=== PATIENT | male | born 1985 | race African-American/Black ===

== ENCOUNTER → 2016-05-07 | Emergency (ER) | payer BC ==
[~2016-05-07] VITALS: Ht 182.9 cm; Wt 113.6 kg
[~2016-05-07] MED LIST: AMOXICILLIN 8751 TAB PO; CARAFATE 1GM1 G PO; CEPHALEXIN500 M1 PO; LEVAQUIN 750MG750 M1 PO; NO HOME MEDICATIONS; NORCO 325 MG-51 TAB PO; PERCOCET 325 MG1 TA2; PERCOCET 325 MG1 TA2 PO; PHENERGAN 25 TA25 MG PO; TYLENOL ARTHRI650 M1 PO; ZOFRAN 4MG T4 MG/TAB PO; ZOFRAN ODT4 MG PO; ZOFRAN8 MG PO; ZYLOPRIM 300MG300 MG PO
[2016-05-07 08:21] VITALS: TEMP 98
[2016-05-07 08:57] LABS: BASO % 0.5 % (0.0-2.0); EOS # 0.1 (0.0-0.7); EOS % 1.1 % (0-4.0); GRAN # 3.8 (1.4-6.5); GRAN % 58.3 % (42.2-75.2); HEMATOCRIT 39.5 % (42.0-52.0); LYMPH # 2.1 (1.2-3.4); LYMPH % 32.5 % (20.0-51.0); MEAN CELL VOLUME 67 fl (80.0-100.0); MEAN CORPUSCULAR HEMOGLOBIN 24 pg (27.0-31.0); MEAN CORPUSCULAR HGB CONC 35 g/dl (33.0-37.0); MONO # 0.5 (0.1-0.6); MONO % 7.1 % (1.7-9.3); PLATELET COUNT 124 K/mm3 (130-400); RED BLOOD COUNT 5.88 M/mm3 (4.20-5.60); REDCELL DISTRIBUTION WIDTH-CV 18.8 % (11.5-14.5); WHITE BLOOD COUNT 6.5 K/mm3 (4.8-10.8)
[2016-05-07 09:22] LABS: ADJUSTED CALCIUM 9.3 mg/dL (8.4-10.2); ALBUMIN 4.8 gm/dL (3.5-5.0); BILIRUBIN,TOTAL 1.6 mg/dL (0.0-1.0); C-REACTIVE PROTEIN 0.7 mg/dL (0.0-0.9); CALCIUM 9.9 mg/dL (8.4-10.2); CREATININE, serum 0.83 mg/dL (0.66-1.25); POTASSIUM 4.5 mmol/L (3.4-5.0); TOTAL PROTEIN 8.8 gm/dL (6.4-8.2)
[2016-05-07 09:52] LABS: INFLUENZA B NEGATIVE
[2016-05-07 10:07] VITALS: BP 136/72; PULSE 72
== END | disposition home or self-care (01) ==
LOC: COL.ER 08:20
PROVIDERS: Emergency Medicine
DX: B34.9 Viral infection, unspecified (principal); R53.1 Weakness; R11.2 Nausea with vomiting, unspecified; R19.7 Diarrhea, unspecified

== ENCOUNTER → 2016-06-01 | Outpatient (CLI) | payer BC ==
[2016-06-01 12:01] LABS: ADJUSTED CALCIUM 9.2 mg/dL (8.4-10.2); BILIRUBIN,TOTAL 1.3 mg/dL (0.0-1.0); CREATININE, serum 0.89 mg/dL (0.66-1.25); POTASSIUM 4.1 mmol/L (3.4-5.0); TOTAL PROTEIN 9.2 gm/dL (6.4-8.2); URIC ACID 9.5 mg/dL (3.5-8.5)
[2016-06-01 12:03] LABS: BASO % 0.5 % (0.0-2.0); EOS # 0.1 (0.0-0.7); EOS % 0.7 % (0-4.0); GRAN # 5.1 (1.4-6.5); GRAN % 62.7 % (42.2-75.2); HEMOGLOBIN 13.9 g/dl (13.5-18.0); LYMPH # 2.4 (1.2-3.4); LYMPH % 29.4 % (20.0-51.0); MEAN CELL VOLUME 67 fl (80.0-100.0); MEAN CORPUSCULAR HEMOGLOBIN 24 pg (27.0-31.0); MEAN CORPUSCULAR HGB CONC 36 g/dl (33.0-37.0); MONO # 0.5 (0.1-0.6); MONO % 6.3 % (1.7-9.3); PLATELET COUNT 112 K/mm3 (130-400); RED BLOOD COUNT 5.86 M/mm3 (4.20-5.60); REDCELL DISTRIBUTION WIDTH-CV 18.7 % (11.5-14.5); WHITE BLOOD COUNT 8.2 K/mm3 (4.8-10.8)
== END ==
LOC: COL.LAB 10:16
PROVIDERS: Physician Assistant
DX: D57.1 Sickle-cell disease without crisis (principal); M10.9 Gout, unspecified

== ENCOUNTER 2016-08-16 09:53 | Emergency (ER) | payer BC ==
[~2016-08-16] VITALS: Ht 182.9 cm; Wt 125.0 kg
[~2016-08-16 09:53] MED LIST changes: -CARAFATE 1GM1 G PO; -ZYLOPRIM 300MG300 MG PO
[2016-08-16 10:04] VITALS: BP 136/86; TEMP 98.6
[2016-08-16] MEDS ORDERED: ZYLOPRIM 300MG300 MG PO (10:07)
[2016-08-16 11:09] LABS: BASO % 0.3 % (0.0-2.0); EOS # 0.1 (0.0-0.7); EOS % 0.7 % (0-4.0); GRAN # 4.3 (1.4-6.5); GRAN % 62.7 % (42.2-75.2); HEMATOCRIT 37.8 % (42.0-52.0); HEMOGLOBIN 13.5 g/dl (13.5-18.0); LYMPH % 29.3 % (20.0-51.0); MEAN CELL VOLUME 66 fl (80.0-100.0); MEAN CORPUSCULAR HEMOGLOBIN 24 pg (27.0-31.0); MEAN CORPUSCULAR HGB CONC 36 g/dl (33.0-37.0); MONO # 0.4 (0.1-0.6); MONO % 6.4 % (1.7-9.3); PLATELET COUNT 109 K/mm3 (130-400); REDCELL DISTRIBUTION WIDTH-CV 18.8 % (11.5-14.5); WHITE BLOOD COUNT 6.9 K/mm3 (4.8-10.8)
[2016-08-16 11:26] LABS: ADJUSTED CALCIUM 9.2 mg/dL (8.4-10.2); ALBUMIN 4.7 gm/dL (3.5-5.0); BILIRUBIN,TOTAL 1.4 mg/dL (0.0-1.0); CALCIUM 9.8 mg/dL (8.4-10.2); CREATININE, serum 0.79 mg/dL (0.66-1.25); TOTAL PROTEIN 8.2 gm/dL (6.4-8.2)
[2016-08-16] MEDS ORDERED: CARAFATE 1GM1 G PO (12:54)
[2016-08-16] MEDS ORDERED: ZOFRAN ODT4 MG PO (12:54)
[2016-08-16 13:00] VITALS: PULSE 81
== END 2016-08-16 14:13 | disposition home or self-care (01) ==
LOC: COL.ER 09:53
PROVIDERS: Emergency Medicine
DX: K29.70 Gastritis, unspecified, without bleeding (principal); R11.10 Vomiting, unspecified; D57.1 Sickle-cell disease without crisis; M10.9 Gout, unspecified

== ENCOUNTER 2016-08-23 08:41 | Emergency (ER) | payer BC ==
[~2016-08-23] VITALS: Ht 185.4 cm; Wt 125.0 kg
[~2016-08-23 08:41] MED LIST changes: +CARAFATE 1GM1 G PO; +ZYLOPRIM 300MG300 MG PO
[2016-08-23 08:43] VITALS: TEMP 98.1
[2016-08-23 09:34] LABS: BASO % 0.5 % (0.0-2.0); EOS % 0.7 % (0-4.0); GRAN # 3.9 (1.4-6.5); GRAN % 63.6 % (42.2-75.2); HEMATOCRIT 39.3 % (42.0-52.0); HEMOGLOBIN 13.8 g/dl (13.5-18.0); LYMPH # 1.7 (1.2-3.4); LYMPH % 27.8 % (20.0-51.0); MEAN CORPUSCULAR HEMOGLOBIN 24 pg (27.0-31.0); MEAN CORPUSCULAR HGB CONC 35 g/dl (33.0-37.0); MONO # 0.4 (0.1-0.6); MONO % 7.2 % (1.7-9.3); PLATELET COUNT 109 K/mm3 (130-400); RED BLOOD COUNT 5.85 M/mm3 (4.20-5.60); REDCELL DISTRIBUTION WIDTH-CV 18.7 % (11.5-14.5); WHITE BLOOD COUNT 6.1 K/mm3 (4.8-10.8)
[2016-08-23 09:39] LABS: MEAN CELL VOLUME 67 fl (80.0-100.0)
[2016-08-23 09:43] LABS: ADJUSTED CALCIUM 9.2 mg/dL (8.4-10.2); ALBUMIN 4.7 gm/dL (3.5-5.0); BILIRUBIN,TOTAL 1.5 mg/dL (0.0-1.0); CALCIUM 9.8 mg/dL (8.4-10.2); CREATININE, serum 0.87 mg/dL (0.66-1.25); POTASSIUM 3.9 mmol/L (3.4-5.0); TOTAL PROTEIN 8.4 gm/dL (6.4-8.2)
[2016-08-23 17:03] VITALS: BP 119/74; PULSE 88
== END 2016-08-23 10:54 | disposition home or self-care (01) ==
LOC: COL.ER 08:41
PROVIDERS: Family Medicine
DX: K29.70 Gastritis, unspecified, without bleeding (principal); D57.1 Sickle-cell disease without crisis
CPT/HCPCS: J2250; J2405; J3010; J7030

== ENCOUNTER 2016-08-23 14:21 | Day surgery (SDC) | payer BC ==
[~2016-08-23] VITALS: Ht 182.9 cm; Wt 123.9 kg
[2016-08-23 14:34] VITALS: BP 131/66; PULSE 77; TEMP 98.4
[2016-08-23 14:58] VITALS: BP 131/66; PULSE 77; TEMP 98.4
[2016-08-23 16:20] VITALS: BP 121/63; PULSE 71
[2016-08-23 16:35] VITALS: BP 110/60; PULSE 72
[2016-08-23 16:50] VITALS: BP 116/63; PULSE 68
[2016-08-23 17:05] VITALS: BP 117/66; PULSE 67
== END 2016-08-23 17:40 | disposition home or self-care (01) ==
LOC: SDCO 14:21 → JCC 14:21 → SDCO 17:40
DX: K21.0 Gastro-esophageal reflux disease with esophagitis (principal); R11.2 Nausea with vomiting, unspecified; K44.9 Diaphragmatic hernia without obstruction or gangrene; D57.3 Sickle-cell trait
CPT/HCPCS: OP; J7030

== ENCOUNTER 2016-10-01 10:38 | Emergency (ER) | payer BC ==
[~2016-10-01] VITALS: Ht 182.9 cm; Wt 122.7 kg
[2016-10-01 10:47] VITALS: BP 133/74; PULSE 66; TEMP 98.3
[2016-10-01 12:10] LABS: BASO % 0.5 % (0.0-2.0); EOS % 0.2 % (0-4.0); GRAN # 3.6 (1.4-6.5); GRAN % 60.5 % (42.2-75.2); HEMATOCRIT 38.3 % (42.0-52.0); HEMOGLOBIN 13.5 g/dl (13.5-18.0); LYMPH # 1.9 (1.2-3.4); LYMPH % 32.5 % (20.0-51.0); MEAN CELL VOLUME 67 fl (80.0-100.0); MEAN CORPUSCULAR HEMOGLOBIN 24 pg (27.0-31.0); MEAN CORPUSCULAR HGB CONC 35 g/dl (33.0-37.0); MONO # 0.4 (0.1-0.6); MONO % 6.1 % (1.7-9.3); PLATELET COUNT 111 K/mm3 (130-400); RED BLOOD COUNT 5.71 M/mm3 (4.20-5.60); REDCELL DISTRIBUTION WIDTH-CV 18.8 % (11.5-14.5); WHITE BLOOD COUNT 5.9 K/mm3 (4.8-10.8)
[2016-10-01 12:54] LABS: ADJUSTED CALCIUM 8.8 mg/dL (8.4-10.2); ALBUMIN 4.6 gm/dL (3.5-5.0); BILIRUBIN,TOTAL 1.4 mg/dL (0.0-1.0); C-REACTIVE PROTEIN 0.6 mg/dL (0.0-0.9); CALCIUM 9.3 mg/dL (8.4-10.2); CREATININE, serum 0.91 mg/dL (0.66-1.25); POTASSIUM 4.1 mmol/L (3.4-5.0)
== END 2016-10-01 15:09 | disposition home or self-care (01) ==
LOC: COL.ER 10:38
PROVIDERS: Physician Assistant
DX: R10.11 Right upper quadrant pain (principal); R11.2 Nausea with vomiting, unspecified; D57.1 Sickle-cell disease without crisis
CPT/HCPCS: J1170; J2550; J7030; Q9967

== ENCOUNTER → 2016-10-04 | Outpatient (CLI) | payer BC | LOC: COL.RAD 09:41 | DX: K82.8 Other specified diseases of gallbladder (principal) ==

== ENCOUNTER 2016-12-21 08:34 | Emergency (ER) | payer BC ==
[~2016-12-21] VITALS: Ht 182.9 cm; Wt 124.1 kg
[2016-12-21 08:35] VITALS: BP 133/82; PULSE 89; TEMP 98.8
[2016-12-21 09:23] LABS: BASO % 0.5 % (0.0-2.0); EOS # 0.1 (0.0-0.7); EOS % 0.8 % (0-4.0); GRAN # 5.6 (1.4-6.5); GRAN % 68.1 % (42.2-75.2); HEMATOCRIT 38.3 % (42.0-52.0); HEMOGLOBIN 13.9 g/dl (13.5-18.0); LYMPH # 1.8 (1.2-3.4); LYMPH % 22.2 % (20.0-51.0); MEAN CELL VOLUME 67 fl (80.0-100.0); MEAN CORPUSCULAR HEMOGLOBIN 24 pg (27.0-31.0); MEAN CORPUSCULAR HGB CONC 36 g/dl (33.0-37.0); MONO # 0.7 (0.1-0.6); MONO % 8.2 % (1.7-9.3); PLATELET COUNT 124 K/mm3 (130-400); REDCELL DISTRIBUTION WIDTH-CV 18.1 % (11.5-14.5); RETIC % 2.6 % (0.5-3.52); WHITE BLOOD COUNT 8.3 K/mm3 (4.8-10.8)
[2016-12-21 09:33] LABS: CALCIUM 9.4 mg/dL (8.4-10.2); CREATININE, serum 0.83 mg/dL (0.66-1.25); POTASSIUM 3.9 mmol/L (3.4-5.0)
[2016-12-21] MEDS ORDERED: NORCO 325 MG-51 TAB PO (10:11)
== END 2016-12-21 11:20 | disposition home or self-care (01) ==
LOC: COL.ER 08:34
PROVIDERS: Physician Assistant
DX: D69.6 Thrombocytopenia, unspecified (principal); M25.561 Pain in right knee; D57.1 Sickle-cell disease without crisis
CPT/HCPCS: J1170; J1885; J7030

== ENCOUNTER 2017-02-02 08:37 | Emergency (ER) | payer BC ==
[~2017-02-02] VITALS: Ht 182.9 cm; Wt 125.0 kg
[2017-02-02 08:41] VITALS: BP 141/80; TEMP 98
[2017-02-02 09:39] LABS: ADJUSTED CALCIUM 9.1 mg/dL (8.4-10.2); ALBUMIN 4.3 gm/dL (3.5-5.0); BILIRUBIN,TOTAL 1.4 mg/dL (0.0-1.0); CALCIUM 9.3 mg/dL (8.4-10.2); CREATININE, serum 0.85 mg/dL (0.66-1.25); TOTAL PROTEIN 7.6 gm/dL (6.4-8.2)
[2017-02-02 09:46] LABS: BASO % 0.4 % (0.0-2.0); EOS # 0.1 (0.0-0.7); EOS % 0.7 % (0-4.0); GRAN # 5.2 (1.4-6.5); GRAN % 74.3 % (42.2-75.2); HEMATOCRIT 37.4 % (42.0-52.0); HEMOGLOBIN 13.2 g/dl (13.5-18.0); LYMPH # 1.3 (1.2-3.4); LYMPH % 18.9 % (20.0-51.0); MEAN CELL VOLUME 68 fl (80.0-100.0); MEAN CORPUSCULAR HEMOGLOBIN 24 pg (27.0-31.0); MEAN CORPUSCULAR HGB CONC 35 g/dl (33.0-37.0); MONO # 0.4 (0.1-0.6); MONO % 5.3 % (1.7-9.3); PLATELET COUNT 105 K/mm3 (130-400); RED BLOOD COUNT 5.47 M/mm3 (4.20-5.60); REDCELL DISTRIBUTION WIDTH-CV 17.4 % (11.5-14.5); RETIC % 2.7 % (0.5-3.52)
[2017-02-02] MEDS ORDERED: NORCO 325 MG-51 TAB PO (10:29)
[2017-02-02 11:03] VITALS: PULSE 78
== END 2017-02-02 11:04 | disposition home or self-care (01) ==
LOC: COL.ER 08:37
PROVIDERS: Nurse Practitioner
DX: M79.662 Pain in left lower leg (principal); M10.9 Gout, unspecified; D57.1 Sickle-cell disease without crisis
CPT/HCPCS: J1170; J2405; J7030

== ENCOUNTER 2017-08-05 21:22 | Inpatient (IN) | payer OTHER ==
[~2017-08-05] VITALS: Ht 182.9 cm; Wt 115.3 kg
[2017-08-05 22:03] LABS: HEMOGLOBIN 13.5 g/dl (13.5-18.0); MEAN CELL VOLUME 67 fl (80.0-100.0); MEAN CORPUSCULAR HEMOGLOBIN 25 pg (27.0-31.0); MEAN CORPUSCULAR HGB CONC 37 g/dl (33.0-37.0); PLATELET COUNT 116 K/mm3 (130-400); RED BLOOD COUNT 5.46 M/mm3 (4.20-5.60); REDCELL DISTRIBUTION WIDTH-CV 16.2 % (11.5-14.5); RETIC # 0.13 M/mm3 (0.02-0.16); RETIC % 2.3 % (0.5-3.52)
[2017-08-05 22:04] LABS: HEMATOCRIT 36.8 % (42.0-52.0)
[2017-08-05 22:13] LABS: ALBUMIN 4.5 gm/dL (3.5-5.0); BILIRUBIN,TOTAL 2.3 mg/dL (0.0-1.0); C-REACTIVE PROTEIN 5.9 mg/dL (0.0-0.9); CALCIUM 9.3 mg/dL (8.4-10.2); CREATININE, serum 0.96 mg/dL (0.66-1.25); POTASSIUM 3.8 mmol/L (3.4-5.0); TOTAL PROTEIN 8.9 gm/dL (6.4-8.2)
[2017-08-05 22:23] LABS: BAND 3 % (0-10); LYMPHOCYTE 8 % (20.0-51.0); NEUTROPHILS 86 % (42.0-75.2); TARGET CELLS 1+
[2017-08-05 22:24] LABS: ANISOCYTOSIS 1+; MICROCYTOSIS 2+; PLATELET ESTIMATE DECREASED (NORMAL)
[2017-08-05 22:35] LABS: COLLECTION METHOD CLEAN CATCH
[2017-08-05 22:42] LABS: PH 5 (5-8); SQUAMOUS EPITHELIAL 0-2 /hpf; URINE APPEARANCE Hazy; URINE BACTERIA Rare /hpf; URINE BILIRUBIN Negative (NEGATIVE); URINE BLOOD 2+ (NEGATIVE); URINE COLOR Yellow; URINE GLUCOSE Negative (NEGATIVE); URINE KETONE Negative (NEGATIVE); URINE LEUKOCYTE ESTERASE 2+ (NEGATIVE); URINE NITRATE Negative (NEGATIVE); URINE PROTEIN(semi-quant) Negative (NEGATIVE)
[2017-08-06 01:22] VITALS: BP 106/56; PULSE 84; TEMP 98.8
[2017-08-06 04:19] VITALS: BP 124/71; BP 125/80; PULSE 64; PULSE 89; TEMP 98.6
[2017-08-06 06:39] LABS: BASO % 0.2 % (0.0-2.0); GRAN % 81.7 % (42.2-75.2); LYMPH # 1.8 (1.2-3.4); LYMPH % 9.6 % (20.0-51.0); MEAN CELL VOLUME 68 fl (80.0-100.0); MEAN CORPUSCULAR HEMOGLOBIN 24 pg (27.0-31.0); MEAN CORPUSCULAR HGB CONC 36 g/dl (33.0-37.0); MONO # 1.5 (0.1-0.6); MONO % 8.1 % (1.7-9.3); PLATELET COUNT 101 K/mm3 (130-400); RED BLOOD COUNT 4.94 M/mm3 (4.20-5.60)
[2017-08-06 06:42] LABS: HEMATOCRIT 33.5 % (42.0-52.0)
[2017-08-06 06:55] LABS: ALBUMIN 3.8 gm/dL (3.5-5.0); BILIRUBIN,TOTAL 1.8 mg/dL (0.0-1.0); CALCIUM 8.7 mg/dL (8.4-10.2); CREATININE, serum 0.93 mg/dL (0.66-1.25); POTASSIUM 3.8 mmol/L (3.4-5.0); TOTAL PROTEIN 7.5 gm/dL (6.4-8.2)
[2017-08-06 07:20] VITALS: BP 117/65; PULSE 84; TEMP 98.5
[2017-08-06 11:31] VITALS: BP 97/53; PULSE 91; TEMP 98.3
[2017-08-06 16:31] VITALS: BP 98/50; PULSE 99; TEMP 98.6
[2017-08-06 19:09] VITALS: BP 115/63; PULSE 97; TEMP 102.1
[2017-08-07] VITALS (7 sets, daily range): BP systolic 105–128; BP diastolic 59–81; PULSE 74–93; TEMP 98–100
[2017-08-07 06:43] LABS: BASO % 0.2 % (0.0-2.0); EOS % 0.1 % (0-4.0); GRAN # 14.3 (1.4-6.5); GRAN % 82.8 % (42.2-75.2); LYMPH # 1.7 (1.2-3.4); LYMPH % 9.7 % (20.0-51.0); MEAN CELL VOLUME 68 fl (80.0-100.0); MEAN CORPUSCULAR HEMOGLOBIN 24 pg (27.0-31.0); MEAN CORPUSCULAR HGB CONC 36 g/dl (33.0-37.0); MONO # 1.2 (0.1-0.6); MONO % 6.9 % (1.7-9.3); PLATELET COUNT 104 K/mm3 (130-400); RED BLOOD COUNT 4.93 M/mm3 (4.20-5.60); REDCELL DISTRIBUTION WIDTH-CV 15.9 % (11.5-14.5)
[2017-08-07 06:44] LABS: HEMATOCRIT 33.4 % (42.0-52.0)
[2017-08-07 06:57] LABS: ALBUMIN 3.6 gm/dL (3.5-5.0); BILIRUBIN,TOTAL 1.3 mg/dL (0.0-1.0); CALCIUM 8.8 mg/dL (8.4-10.2); CREATININE, serum 0.87 mg/dL (0.66-1.25); POTASSIUM 3.8 mmol/L (3.4-5.0); TOTAL PROTEIN 7.2 gm/dL (6.4-8.2)
[2017-08-08] VITALS (7 sets, daily range): BP systolic 111–138; BP diastolic 55–92; PULSE 61–90; TEMP 98–99.5
[2017-08-08 06:33] LABS: BASO % 0.3 % (0.0-2.0); EOS % 0.2 % (0-4.0); GRAN # 9.9 (1.4-6.5); GRAN % 77.9 % (42.2-75.2); HEMOGLOBIN 12.6 g/dl (13.5-18.0); LYMPH # 1.9 (1.2-3.4); LYMPH % 14.6 % (20.0-51.0); MEAN CELL VOLUME 67 fl (80.0-100.0); MEAN CORPUSCULAR HEMOGLOBIN 24 pg (27.0-31.0); MEAN CORPUSCULAR HGB CONC 36 g/dl (33.0-37.0); MONO # 0.9 (0.1-0.6); MONO % 6.7 % (1.7-9.3); PLATELET COUNT 119 K/mm3 (130-400); RED BLOOD COUNT 5.16 M/mm3 (4.20-5.60); REDCELL DISTRIBUTION WIDTH-CV 15.9 % (11.5-14.5)
[2017-08-08 06:37] LABS: HEMATOCRIT 34.8 % (42.0-52.0)
[2017-08-08 06:49] LABS: ALBUMIN 3.7 gm/dL (3.5-5.0); BILIRUBIN,TOTAL 0.6 mg/dL (0.0-1.0); CALCIUM 8.9 mg/dL (8.4-10.2); CREATININE, serum 0.84 mg/dL (0.66-1.25); POTASSIUM 3.6 mmol/L (3.4-5.0); TOTAL PROTEIN 7.6 gm/dL (6.4-8.2)
[2017-08-08 07:19] LABS: HIV 1/2 Antibodies Non-Reactive; HIV-1p24 Antigen Non-Reactive
[2017-08-09 04:01] VITALS: BP 114/66; PULSE 53; TEMP 98.4
[2017-08-09 07:00] LABS: BASO % 0.3 % (0.0-2.0); EOS % 0.2 % (0-4.0); GRAN # 6.6 (1.4-6.5); GRAN % 72.6 % (42.2-75.2); LYMPH # 1.7 (1.2-3.4); LYMPH % 18.6 % (20.0-51.0); MEAN CELL VOLUME 68 fl (80.0-100.0); MEAN CORPUSCULAR HGB CONC 36 g/dl (33.0-37.0); MONO # 0.7 (0.1-0.6); MONO % 7.9 % (1.7-9.3); PLATELET COUNT 123 K/mm3 (130-400); RED BLOOD COUNT 4.64 M/mm3 (4.20-5.60); REDCELL DISTRIBUTION WIDTH-CV 15.9 % (11.5-14.5)
[2017-08-09 07:02] LABS: CALCIUM 8.9 mg/dL (8.4-10.2); CREATININE, serum 0.83 mg/dL (0.66-1.25); POTASSIUM 3.6 mmol/L (3.4-5.0)
[2017-08-09 07:14] LABS: HEMATOCRIT 31.3 % (42.0-52.0); HEMOGLOBIN 11.3 g/dl (13.5-18.0); MEAN CORPUSCULAR HEMOGLOBIN 24 pg (27.0-31.0)
[2017-08-09 07:48] VITALS: BP 143/80; PULSE 68; TEMP 99
[2017-08-09] MEDS ORDERED: BACTRIM DS 8001 TAB PO (08:59)
[2017-08-09 11:58] VITALS: BP 108/63; PULSE 93; TEMP 99
== END 2017-08-09 13:56 | disposition home or self-care (01) | DRG 872 ==
LOC: COL.ER 21:22 → MEDICAL 23:16
PROVIDERS: Emergency Medicine; Internal Medicine; Nurse Practitioner Family; Physician Assistant
DX: A41.9 Sepsis, unspecified organism (principal); N39.0 Urinary tract infection, site not specified; D57.1 Sickle-cell disease without crisis; D69.6 Thrombocytopenia, unspecified; B95.61 Methicillin susceptible Staphylococcus aureus infection as the cause of diseases classified elsewhere
CPT/HCPCS: 99223-AI; 99232-AI; 99239; J0696; J1650; J2270; J2405; J3370; J7030; J7040; J7050; Q9967

== ENCOUNTER 2017-10-13 18:51 | Emergency (ER) | payer SELFPAY ==
[~2017-10-13] VITALS: Ht 182.9 cm; Wt 117.7 kg
[~2017-10-13 18:51] MED LIST changes: +BACTRIM DS 8001 TAB PO
[2017-10-13 18:59] VITALS: TEMP 98.3
[2017-10-13 19:47] LABS: COLLECTION METHOD CLEAN CATCH
[2017-10-13 19:51] LABS: BASO % 0.3 % (0.0-2.0); EOS # 0.1 (0.0-0.7); EOS % 1.1 % (0-4.0); GRAN # 3.5 (1.4-6.5); GRAN % 55.9 % (42.2-75.2); HEMATOCRIT 37.4 % (42.0-52.0); HEMOGLOBIN 13.5 g/dl (13.5-18.0); LYMPH # 2.2 (1.2-3.4); LYMPH % 35.3 % (20.0-51.0); MEAN CELL VOLUME 68 fl (80.0-100.0); MEAN CORPUSCULAR HEMOGLOBIN 24 pg (27.0-31.0); MEAN CORPUSCULAR HGB CONC 36 g/dl (33.0-37.0); MONO # 0.4 (0.1-0.6); MONO % 7.1 % (1.7-9.3); PLATELET COUNT 105 K/mm3 (130-400); RED BLOOD COUNT 5.53 M/mm3 (4.20-5.60); REDCELL DISTRIBUTION WIDTH-CV 18.2 % (11.5-14.5); RETIC # 0.15 M/mm3 (0.02-0.16); RETIC % 2.8 % (0.5-3.52)
[2017-10-13 20:01] LABS: PH 7 (5-8); SQUAMOUS EPITHELIAL 0-2 /hpf; URINE APPEARANCE Clear; URINE BACTERIA None Seen /hpf; URINE BILIRUBIN Negative (NEGATIVE); URINE BLOOD Negative (NEGATIVE); URINE COLOR Straw; URINE GLUCOSE Negative (NEGATIVE); URINE KETONE Negative (NEGATIVE); URINE LEUKOCYTE ESTERASE Negative (NEGATIVE); URINE NITRATE Negative (NEGATIVE); URINE PROTEIN(semi-quant) Negative (NEGATIVE); URINE RBC 0-2 /hpf; URINE UROBILINOGEN Negative (NEGATIVE)
[2017-10-13 20:05] LABS: BILIRUBIN,TOTAL 1.4 mg/dL (0.0-1.0); CALCIUM 9.1 mg/dL (8.4-10.2); CREATININE, serum 0.81 mg/dL (0.66-1.25); POTASSIUM 4.1 mmol/L (3.4-5.0); TOTAL PROTEIN 8.1 gm/dL (6.4-8.2)
[2017-10-13] MEDS ORDERED: PERCOCET 325 MG1 TA2 PO (22:39)
[2017-10-13 23:18] VITALS: BP 127/81; PULSE 58
== END 2017-10-13 23:22 | disposition home or self-care (01) ==
LOC: COL.ER 18:51
PROVIDERS: Emergency Medicine
DX: D57.219 Sickle-cell/Hb-C disease with crisis, unspecified (principal)
CPT/HCPCS: J1170; J1885; J3010; J7030

== ENCOUNTER 2018-01-04 06:59 | Emergency (ER) | payer BC ==
[~2018-01-04] VITALS: Ht 185.4 cm; Wt 118.6 kg
[2018-01-04 07:02] VITALS: BP 132/85; TEMP 98.5
[2018-01-04] MEDS ORDERED: ADVIL200 MG PO (07:10)
[2018-01-04] MEDS ORDERED: LIDODERM 5% PATC1 EA TP (07:19)
[2018-01-04] MEDS ORDERED: FLEXERIL 1010 MG/TAB PO (07:19)
[2018-01-04 07:25] VITALS: PULSE 67
== END 2018-01-04 07:26 | disposition home or self-care (01) ==
LOC: COL.ER 06:59
DX: M54.5 Low back pain (principal)

== ENCOUNTER 2018-01-11 07:07 | Emergency (ER) | payer BC ==
[~2018-01-11] VITALS: Ht 182.9 cm; Wt 118.6 kg
[~2018-01-11 07:07] MED LIST changes: +ADVIL200 MG PO; +FLEXERIL 1010 MG/TAB PO; +LIDODERM 5% PATC1 EA TP
[2018-01-11 07:11] VITALS: TEMP 98.8
[2018-01-11] MEDS ORDERED: TUMS500 MG (07:14)
[2018-01-11] MEDS ORDERED: FLEXERIL 1010 MG/TAB PO (07:15)
[2018-01-11] MEDS ORDERED: PREDNISONE20 MG PO (07:22)
[2018-01-11] MEDS ORDERED: NEURONTIN300 MG/CAP PO (07:22)
[2018-01-11] MEDS ORDERED: ROBAXIN 50500 MG/TAB PO (07:25)
[2018-01-11 08:23] VITALS: BP 144/84; PULSE 80
== END 2018-01-11 08:24 | disposition home or self-care (01) ==
LOC: COL.ER 07:07
DX: M54.5 Low back pain (principal)
CPT/HCPCS: J7512

== ENCOUNTER 2018-02-26 08:44 | Emergency (ER) | payer BC ==
[~2018-02-26] VITALS: Ht 185.4 cm; Wt 118.2 kg
[~2018-02-26 08:44] MED LIST changes: +NEURONTIN300 MG/CAP PO; +PREDNISONE20 MG PO; +ROBAXIN 50500 MG/TAB PO; +TUMS500 MG
[2018-02-26 08:50] VITALS: TEMP 97
[2018-02-26] MEDS ORDERED: ADVIL200 MG PO (09:13)
[2018-02-26 10:09] LABS: BASO % 0.5 % (0.0-2.0); EOS # 0.1 (0.0-0.7); EOS % 0.8 % (0-4.0); GRAN # 5.2 (1.4-6.5); GRAN % 70.6 % (42.2-75.2); HEMATOCRIT 38.7 % (42.0-52.0); HEMOGLOBIN 13.7 g/dl (13.5-18.0); LYMPH # 1.6 (1.2-3.4); MEAN CELL VOLUME 69 fl (80.0-100.0); MEAN CORPUSCULAR HEMOGLOBIN 25 pg (27.0-31.0); MEAN CORPUSCULAR HGB CONC 35 g/dl (33.0-37.0); MONO # 0.5 (0.1-0.6); MONO % 6.3 % (1.7-9.3); PLATELET COUNT 129 K/mm3 (130-400); REDCELL DISTRIBUTION WIDTH-CV 16.5 % (11.5-14.5)
[2018-02-26 10:16] LABS: RETIC # 0.17 M/mm3 (0.02-0.16)
[2018-02-26 10:24] LABS: ALBUMIN 4.5 gm/dL (3.5-5.0); BILIRUBIN,TOTAL 1.2 mg/dL (0.0-1.0); CALCIUM 9.6 mg/dL (8.4-10.2); CREATININE, serum 0.81 mg/dL (0.66-1.25); POTASSIUM 4.1 mmol/L (3.4-5.0); TOTAL PROTEIN 8.3 gm/dL (6.4-8.2)
[2018-02-26] MEDS ORDERED: PERCOCET 325 MG1 TA2 PO (12:20)
[2018-02-26 12:58] VITALS: BP 153/90; PULSE 73
== END 2018-02-26 12:59 | disposition home or self-care (01) ==
LOC: COL.ER 08:44
PROVIDERS: Nurse Practitioner Primary Care
DX: D57.219 Sickle-cell/Hb-C disease with crisis, unspecified (principal)
CPT/HCPCS: J1170; J3010; J7030

== ENCOUNTER 2018-03-02 22:23 | Emergency (ER) | payer BC ==
[~2018-03-02] VITALS: Ht 182.9 cm; Wt 118.2 kg
[2018-03-02 22:26] VITALS: TEMP 97.2
[2018-03-02 23:06] LABS: BASO # 0.1 (0.0-0.2); BASO % 0.4 % (0.0-2.0); EOS # 0.2 (0.0-0.7); EOS % 1.6 % (0-4.0); GRAN # 7.3 (1.4-6.5); GRAN % 63.5 % (42.2-75.2); HEMOGLOBIN 15.2 g/dl (13.5-18.0); LYMPH # 3.1 (1.2-3.4); LYMPH % 26.6 % (20.0-51.0); MEAN CELL VOLUME 68 fl (80.0-100.0); MEAN CORPUSCULAR HEMOGLOBIN 25 pg (27.0-31.0); MEAN CORPUSCULAR HGB CONC 36 g/dl (33.0-37.0); MONO # 0.9 (0.1-0.6); MONO % 7.6 % (1.7-9.3); PLATELET COUNT 159 K/mm3 (130-400); RED BLOOD COUNT 6.16 M/mm3 (4.20-5.60); REDCELL DISTRIBUTION WIDTH-CV 17.7 % (11.5-14.5); RETIC # 0.18 M/mm3 (0.02-0.16); RETIC % 2.9 % (0.5-3.52)
[2018-03-02 23:11] LABS: ALBUMIN 5.1 gm/dL (3.5-5.0); BILIRUBIN,TOTAL 1.5 mg/dL (0.0-1.0); C-REACTIVE PROTEIN 0.9 mg/dL (0.0-0.9); POTASSIUM 3.9 mmol/L (3.4-5.0); TOTAL PROTEIN 9.4 gm/dL (6.4-8.2)
[2018-03-03 00:43] VITALS: BP 125/78; PULSE 86
== END 2018-03-03 00:43 | disposition home or self-care (01) ==
LOC: COL.ER 22:23
PROVIDERS: Emergency Medicine
DX: G89.29 Other chronic pain (principal); M25.562 Pain in left knee; D57.1 Sickle-cell disease without crisis; K21.9 Gastro-esophageal reflux disease without esophagitis; M10.9 Gout, unspecified
CPT/HCPCS: J1885; J3010; J7030